=== PATIENT | male | born 1980 | race Caucasian/White ===

== ENCOUNTER 2024-02-06 17:57 | Emergency (ER) | payer BC, SELFPAY ==
--- NOTE | ~2024-02-06 | CT_ITS ---
EXAMINATION: CT soft tissue neck w con DATE: 02/06/2024 21:20 INDICATION: Dental infection, tongue trauma. TECHNIQUE: Computed tomography (CT) of the neck was performed with 75 mL Omnipaque-350 intravenous co ntrast. Automated exposure control and iterative reconstruction technique were employed. The dose-paola gth product was 664.03 mGy-cm. COMPARISON: None FINDINGS: The thyroid gland is unremarkable. The submandibular and parotid glands are symmetric. There is m ild enlargement of the bilateral upper anterior cervical chain nodes. There are no masses identified . The superior mediastinum is unremarkable. The airway is unremarkable. Parapharyngeal and pre -glottic fat planes are preserved. Normal enhancing neck vessels. The orbits are unremarkable. L eft maxillary retention cyst/polyp. Maxillary, sphenoid, and ethmoid ankles thickening. Clear lungs. There is cervical spondylosis. IMPRESSION: Mild bilateral upper anterior cervical chain lymphadenopathy. Otherwise unremarkable CT soft tissue n adebayo findings. Reviewed, dictated and finalized at location K. [facility] SPECIALIST IMPRESSION: Mild bilateral upper anterior cervical chain lymphadenopathy. Otherwise unremar kable CT soft tissue neck findings.
[2024-02-06 18:35] VITALS: BP 167/96; PULSE 122; RESP 19; TEMP 36.6; O2SAT 96
--- NOTE | 2024-02-06 20:08 | ED_ITS ---
HPI - Dental/Oral General Chief complaint: Dental/Oral Stated complaint: DENTAL INFECTION Time Seen by Provider: 02/06/24 19:15 History of Present Illness HPI Narrative: 43-year-old male presenting with dental pain. States that he recently lost several of his fillings and he has been developing worsening right lower dental pain. States that he has been biting his tongue because of his pain and the lost feelings. His tongue is swollen and painful. States he needs to get in with a dentist. No difficulty swallowing or breathing. No shortness of breath. Related Data Allergies Allergy/AdvReac Type Severity Reaction Status Date / Time NKDA Allergy Mild Uncoded 12/27/03 06:50 Review of Systems Review of Systems: All systems reviewed & are unremarkable except as noted in HPI and below Exam Narrative: GENERAL: Nontoxic, no acute distress HEAD: Normocephalic, atraumatic. EYES: PERRLA and EOMI. ENT: Poor dentition throughout with numerous fillings, several missing from the right lower molars, right half of the tongue is ecchymotic and edematous, he do es have some bleeding under his tongue appears to be coming from an abrasion NECK: Supple. CHEST: No respiratory distress. HEART: Regular rate and rhythm EXTREMITIES: Normal range of motion SKIN: Warm, dry, no rash. NEURO: Alert and oriented x3. PSYCH: Normal mood and affect. Course Vital Signs Vital signs: Vital Signs Temperature 98 F 02/06/24 18:35 Pulse Rate 122 H 02/06/24 18:35 Respiratory Rate 19 02/06/24 18:35 Blood Pressure 167/96 H 02/06/24 18:35 Pulse Oximetry 96 02/06/24 18:35 Temperature 98 F 02/06/24 18:35 Pulse Rate 121 H 02/06/24 20:31 Respiratory Rate 19 02/06/24 20:31 Blood Pressure 156/101 H 02/06/24 20:31 Pulse Oximetry 95 02/06/24 20:31 MDM - Dental/Oral MDM Narrative Medical decision making narrative: 43-year-old male presenting with dental pain and swollen tongue. Blood work with white count of 12.7. Blood work with hyponatremia. States that he has had poor p.o. intake with his symptoms. On further discussion, the patient states that he has been aggressively trying to scrape the green stuff off of his tongue. On my exam, there is no green stuff on his tongue he simply has an extensive tongue ecchymosis. Advised that he stop doing this as an concerned he has been repeatedly traumatizing his tongue. CT soft tissue neck with mild bilateral upper cervical lymphadenopathy but no other acute findings. Will treat the patient with Augmentin for dental inf ection. Discussed appropriate supportive care with the patient recommend close PCP and dental follow-up. Appropriate return precautions given. He is agreeable this plan. Discharged in stable condition. Differential Diagnosis Differential diagnosis: Likely dental caries, toothache, fracture of tooth and other (tongue trauma) Medical Records Attestation: I reviewed the patient's medical records. Lab Data Attestation: I reviewed the patient's lab results. 02/06/24 20:33 02/06/24 20:33 Labs: Lab Results 02/06/24 Range/Units 20:33 WBC 12.7 H (4.5-10.0) K/mm3 RBC 4.77 (4.6-6.20) M/mm3 Hgb 17.4 (14.0-18.0) g/dL Hct 48.0 (42.0-52.0) % MCV 100.6 H (80-100) fl MCH 36.5 H (26-34) pg MCHC 36.3 H (32-36) g/dl RDW 12.7 (11.5-14.5) % Plt Count 142 L (150-375) k/mm3 MPV 10.0 (7.4-10.4) fl Immature Gran % (Auto) 0.8 H (0-0.5) % Neut % (Auto) 77.3 H (45.5-73.1) % Lymph % (Auto) 12.3 L (18.3-44.2) % [place] % (Auto) 8.6 H (2.6-8.5) % Eos % (Auto) 0.5 (0-4.4) % Baso % (Auto) 0.5 (0.2-1.2) % Lymph # (Auto) 1.57 (0.9-3.2) K/mm3 [place] # (Auto) 1.1 H (0.1-0.6) K/mm3 Eos # (Auto) 0.1 (0-0.3) K/mm3 Baso # (Auto) 0.1 (0.0-0.1) K/mm3 Abs Immat Gran (auto) 0.10 H (0.00-0.031) K/mm3 Absolute Neuts (auto) 9.8 H (1.3-6.7) K/mm3 Absolute Nucleated RBC 0.000 (0.0-0.012) K/mm3 Nucleated RBC % 0.0 (0.0-0.2) % Sodium 128 L (137-145) mmol/L Potassium 4.0 (3.4-5.0) mmol/L Chloride 96 L (98-107) mmol/L Carbon Dioxide 20 L (22-30) mmol/L Anion Gap 12 (4-12) mmol/L BUN 16 (9-20) mg/dL Creatinine 1.00 (0.7-1.3) mg/dL Estim Creat Clear Calc 126 ml/min Estimated GFR > 60 (59 - ) Glucose 124 H (65-110) mg/dL Lactic Acid 1.4 (0.7-2.0) mmol/L Calcium 9.7 (8.4-10.2) mg/dL Imaging Data Radiologist's impression: ITS Impressions Soft Tissue Neck CT 02/06/24 21:36 IMPRESSION: Mild bilateral upper anterior cervical chain lymphadenopathy. Otherwise unremar kable CT soft tissue neck findings. Critical Care Time Critical Care Time Critical Care Time: No Discharge Plan Discharge Clinical Impression: Toothache, Dental filling status, Injury of tongue Patient Disposition: Home, Self-Care Condition: Stable Instructions: Antibiotic Form, Toothache (ED), Ecchymosis (ED) Additional Instructions: Please take the antibiotics as prescribed. Use the pain medication as needed. Please stop scraping or touching your tongue as we are concerned you were repeatedly causing trauma to it. Follow up closely with a dentist. If your symptoms worsen or other concerning symptoms arise, please return to the ER. [facility]: [phone] Eat soft foods for two to three days. Rinse the mouth with water after eating. Avoid spicy or salty foods until the wound is healed. Prescriptions: New amoxicillin-pot clavulanate 875-125 mg tablet 1 tablet PO Q12H Qty: 14 0RF acetaminophen [Tylenol Extra Strength] 500 mg tablet 1,000 mg PO QID PRN (Reason: pain) Qty: 30 0RF naproxen 500 mg tablet 500 mg PO BID PRN (Reason: pain) Qty: 20 0RF Follow-up/Referrals: Sandeep Herman MD [Physician] -
[2024-02-06 20:31] VITALS: BP 156/101; PULSE 121; RESP 19; O2SAT 95
[2024-02-06] MEDS: MORPHINE SULFATE (*CRX) 4 MG/ML INJ IV PUSH (20:35)
[2024-02-06] MEDS: KETOROLAC 15 MG/ML VIAL (*BKC) IV PUSH (20:36)
[2024-02-06] MEDS: SODIUM CHLORIDE 0.9% IV 1,000 ML 999 ML IV CONT ×2 (20:36→21:08)
[2024-02-06 20:41] LABS: Basophils Absolute Auto 0.1 K/mm3 (0.0-0.1); Basophils Percent Auto 0.5 % (0.2-1.2); Eosinophils Absolute Auto 0.1 K/mm3 (0-0.3); Eosinophils Percent Auto 0.5 % (0-4.4); Hemoglobin 17.4 g/dL (14.0-18.0); Immature Granulocyte Percent A 0.8 % (0-0.5); Lymphocytes Absolute Auto 1.57 K/mm3 (0.9-3.2); Lymphocytes Percent Auto 12.3 % (18.3-44.2); Mean Corpuscular HGB Conc 36.3 g/dl (32-36); Mean Corpuscular Hemoglobin 36.5 pg (26-34); Mean Corpuscular Volume 100.6 fl (80-100); Monocytes Absolute Auto 1.1 K/mm3 (0.1-0.6); Monocytes Percent Auto 8.6 % (2.6-8.5); Neutrophils Absolute Auto 9.8 K/mm3 (1.3-6.7); Neutrophils Percent Auto 77.3 % (45.5-73.1); Platelet Count Result 142 k/mm3 (150-375); Red Blood Count 4.77 M/mm3 (4.6-6.20); Red Cell Distribution Width 12.7 % (11.5-14.5); White Blood Count 12.7 K/mm3 (4.5-10.0)
[2024-02-06 20:51] LABS: Anion Gap 12 mmol/L (4-12); Blood Urea Nitrogen 16 mg/dL (9-20); Calcium 9.7 mg/dL (8.4-10.2); Carbon Dioxide 20 mmol/L (22-30); Chloride 96 mmol/L (98-107); Estimated CRCL calculation 126 ml/min; Estimated Glomerular Filt Rate > 60; Glucose 124 mg/dL (65-110); Sodium 128 mmol/L (137-145)
[2024-02-06 20:52] LABS: Lactic Acid Reflex 1.4 mmol/L (0.7-2.0)
[2024-02-06] MEDS: AMOXICILLIN/CLAVULANATE K 875-125 MG TAB 1 TABLET PO (22:10)
[2024-02-06 22:17] VITALS: BP 152/99; PULSE 99; RESP 17; O2SAT 97
== END 2024-02-06 22:19 | disposition home or self-care (01) ==
PROVIDERS: Emergency Provider Emergency Medicine
DX: K08.89 Other specified disorders of teeth and supporting structures (principal); S00.512A Abrasion of oral cavity, initial encounter; X58.XXXA Exposure to other specified factors, initial encounter
CPT/HCPCS: 36415; 70491; 80048; 83605; 85025; 96361; 96374; 96375; 99284; A9270; J1885; J2270; J7030; Q9967